=== PATIENT | female | born 1950 | race Caucasian/White ===

== ENCOUNTER 2020-01-16 18:54 | Inpatient (IN) ==
[2020-01-16] MEDS ORDERED: NS 0.9% 1000 ml BAG 1,000 ML IV ONE ×2 (19:04→21:20)
[2020-01-16] MEDS ORDERED: Morphine 4 MG/ML VIAL (1 ml) IV ONE ×2 (19:04→20:55)
[2020-01-16] MEDS ORDERED: Ondansetron 4 mg VIAL 2 MG/ML 2 ml VIAL IV ONE (19:37)
[2020-01-16 19:50] LABS: ABS Lymphocytes 1.2 10^3/ul (1.0-4.8); ABS Monocytes 0.4 10^3/ul (0-0.8); ABS Neutrophils 12.6 10^3/ul (1.5-7.7); Eosinophil % 0.1 %; Hematocrit 40 % (35-47); Hemoglobin 12.8 g/dL (12.0-16.0); Lymphocyte % 8.6 %; Mean Corpuscular HGB Conc 33 g/dL (31-36); Mean Corpuscular Hemoglobin 28 pg (27-31); Mean Corpuscular Volume 86 fL (80-97); Mean Platelet Volume 6.9 fL (7.4-10.4); Platelet Count 530 10^3/uL (150-450); Red Blood Count 4.61 10^6 /uL (3.70-4.87); Red Cell Distribution Width 15 % (10-15); White Blood Count 14.2 10^3/uL (3.5-10.8)
[2020-01-16 20:01] LABS: Albumin 4.4 g/dL (3.2-5.2); Albumin/Globulin Ratio 1.4 (1-3); BUN/Creatinine Ratio 17.1 (8-20); C Reactive Protein 14.62 mg/L (<8.01); Calcium 9.9 mg/dL (8.6-10.3); EGFR African American 55.8 (>60); EGFR Non-African American 46.1 (>60); Globulin 3.2 g/dL (2-4); Potassium 3.5 mmol/L (3.5-5.0); Total Bilirubin 0.5 mg/dL (0.2-1.0); Total Protein 7.6 g/dL (6.4-8.9)
[2020-01-16] MEDS ORDERED: Levofloxacin 750 MG IVPREMIX 750 MG/150 ML BAG IVPB ONE (20:04)
[2020-01-16] MEDS ORDERED: metroNIDAZOLE IV 500 MG/100ML 500 MG/100 ML BAG IVPB ONE (20:04)
[2020-01-16] MEDS ORDERED: Iodixanol (CONTRAST) 320 MG/ML 100 ML SDV IV ONE (20:07)
[2020-01-16] MEDS ORDERED: Bupivacaine 0.25% SDV 30 ML ONE (22:19)
[2020-01-16] MEDS ORDERED: Rocuronium 50 mg VIAL 10 mg/ml 5 ml VIAL (50 mg) ONE (22:30)
[2020-01-16] MEDS ORDERED: Midazolam 2 mg/2 ml VIAL 1 mg/ml 2 ml VIAL (2 mg) ONE (22:30)
[2020-01-16] MEDS ORDERED: fentaNYL 250 mcg/5 ml 50 MCG/ML 5 ml VIAL (250 MCG) ONE (22:30)
[2020-01-16] MEDS ORDERED: Propofol 10 MG/ML 20 ML BTL ONE (22:34)
[2020-01-16] MEDS ORDERED: Phenylephrine IV 10 MG/ML 1 ml VIAL ONE (23:25)
[2020-01-16] MEDS ORDERED: HYDROmorphone 1 MG/1 ML SYRINGE ONE (23:45)
[2020-01-16] MEDS ORDERED: Sodium Citrate/Citric Acid LIQ 15 ML UDC ONE (23:45)
[2020-01-16] MEDS ORDERED: Sugammadex 500 MG/5 ML 5 ml VIAL IV PUSH ONE (23:54)
[2020-01-16] MEDS ORDERED: Ondansetron 4 mg VIAL 2 MG/ML 2 ml VIAL ONE (23:57)
[2020-01-17] MEDS ORDERED: fentaNYL 250 mcg/5 ml 50 MCG/ML 5 ml VIAL (250 MCG) ONE (00:08)
[2020-01-17] MEDS ORDERED: Acetaminophen IV 1 GM/100ML 100 ML ONE (00:25)
[2020-01-17] MEDS ORDERED: Naloxone 0.4 mg VIAL 0.4 mg/ml 1 ml VIAL IV PRN (00:31)
[2020-01-17] MEDS ORDERED: Ondansetron 4 mg VIAL 2 MG/ML 2 ml VIAL IV PRN (00:31)
[2020-01-17] MEDS ORDERED: Rocuronium 50 mg VIAL 10 mg/ml 5 ml VIAL (50 mg) ONE (00:43)
[2020-01-17] MEDS ORDERED: fentaNYL 100 mcg/2 ml 50 MCG/ML VIAL ONE (02:08)
[2020-01-17] MEDS ORDERED: HYDROmorphone 1 MG/1 ML SYRINGE ONE (02:09)
[2020-01-17] MEDS: fentaNYL 100 mcg/2 ml 50 MCG/ML VIAL IV PRN ×3 (02:11→02:32)
[2020-01-17] MEDS: HYDROmorphone 1 MG/1 ML SYRINGE IV PRN ×2 (02:13→02:23)
[2020-01-17] MEDS ORDERED: Levofloxacin 750 MG IVPREMIX 750 MG/150 ML BAG IVPB SCH (03:00)
[2020-01-17] MEDS: Lactated Ringers 1000 ml BAG 1,000 ML IV SCH ×4 (03:25→15:05)
[2020-01-17] MEDS: metroNIDAZOLE IV 500 MG/100ML 500 MG/100 ML BAG IVPB SCH ×3 (03:28→18:40)
[2020-01-17] MEDS: HYDROmorphone 1 MG/1 ML SYRINGE IV SLOW PU PRN ×4 (03:54→11:32)
[2020-01-17 04:49] LABS: Urine Appearance Clear; Urine Bilirubin Negative (Negative); Urine Blood 2+ (Negative); Urine Color Yellow; Urine Glucose Negative (Negative); Urine Ketones Negative (Negative); Urine Nitrite Negative (Negative); Urine Protein 1+(30 mg/dL) (Negative); Urine Urobilinogen Negative (Negative)
[2020-01-17 04:54] LABS: Urine Bacteria 1+ (Absent); Urine Red Blood Cell 3+(>10/hpf) (Absent); Urine Squamous Epithelial Cell Present (Absent); Urine White Blood Cell Trace(0-5/hpf) (Absent)
[2020-01-17 05:35] LABS: Urine Specific Gravity > 1.050 (1.010-1.030)
[2020-01-17 05:39] LABS: ABS Lymphocytes 0.3 10^3/ul (1.0-4.8); ABS Monocytes 0.4 10^3/ul (0-0.8); ABS Neutrophils 16.6 10^3/ul (1.5-7.7); Hematocrit 35 % (35-47); Hemoglobin 11.5 g/dL (12.0-16.0); Mean Corpuscular HGB Conc 32 g/dL (31-36); Mean Corpuscular Hemoglobin 28 pg (27-31); Mean Corpuscular Volume 86 fL (80-97); Mean Platelet Volume 6.6 fL (7.4-10.4); Platelet Count 395 10^3/uL (150-450); Red Blood Count 4.12 10^6 /uL (3.70-4.87); Red Cell Distribution Width 15 % (10-15); White Blood Count 17.4 10^3/uL (3.5-10.8)
[2020-01-17 05:59] LABS: Albumin 3.6 g/dL (3.2-5.2); Albumin/Globulin Ratio 1.4 (1-3); BUN/Creatinine Ratio 16.2 (8-20); Calcium 8.4 mg/dL (8.6-10.3); EGFR African American 59.3 (>60); Globulin 2.5 g/dL (2-4); Potassium 4.4 mmol/L (3.5-5.0); Total Bilirubin 0.7 mg/dL (0.2-1.0); Total Protein 6.1 g/dL (6.4-8.9)
[2020-01-17] MEDS: Ondansetron 4 mg VIAL 2 MG/ML 2 ml VIAL IV PRN ×3 (07:07→20:21)
[2020-01-17] MEDS: Mometasone/Formoter 100/5 MDI INH SCH ×2 (11:12→19:41)
[2020-01-17] MEDS: Famotidine IV 10 MG/ML 2 ml VIAL (20 mg) IV SLOW PU SCH ×2 (11:28→20:15)
[2020-01-17 11:50] LABS: Activated Partial Thrombo Time 28.6 seconds (26.0-38.0); INR 1.16 (0.82-1.09)
[2020-01-17 11:51] LABS: EGFR African American 51.3 (>60); EGFR Non-African American 42.4 (>60)
[2020-01-17] MEDS: Heparin 5000 UNITS/ML 1 mL VIAL SUBCUT SCH ×2 (14:00→22:17)
[2020-01-17] MEDS ORDERED: PHENYLEPHRINE HCL 10 MG PO PRN (16:32)
[2020-01-17] MEDS: Fluticasone NASAL SPRAY 50MCG 16 gm SPRAY BTL BOTH NARES SCH (20:24)
[2020-01-17] MEDS: Ciprofloxacin 400mg IVPREMIX 400 MG/200 ML BAG IVPB SCH (22:05)
[2020-01-18] MEDS: Lactated Ringers 1000 ml BAG 1,000 ML IV SCH ×2 (02:31→15:39)
[2020-01-18] MEDS ORDERED: NS 0.9% 500 ml BAG 500 ML IV ONE (03:43)
[2020-01-18] MEDS: metroNIDAZOLE IV 500 MG/100ML 500 MG/100 ML BAG IVPB SCH ×3 (04:34→18:28)
[2020-01-18] MEDS: Ondansetron 4 mg VIAL 2 MG/ML 2 ml VIAL IV PRN (05:41)
[2020-01-18] MEDS: Heparin 5000 UNITS/ML 1 mL VIAL SUBCUT SCH ×3 (07:03→22:24)
[2020-01-18 07:31] LABS: Hematocrit 30 % (35-47); Hemoglobin 10.1 g/dL (12.0-16.0); Mean Corpuscular HGB Conc 34 g/dL (31-36); Mean Corpuscular Hemoglobin 28 pg (27-31); Mean Corpuscular Volume 85 fL (80-97); Mean Platelet Volume 6.7 fL (7.4-10.4); Platelet Count 361 10^3/uL (150-450); Red Blood Count 3.56 10^6 /uL (3.70-4.87); Red Cell Distribution Width 15 % (10-15)
[2020-01-18 07:46] LABS: BUN/Creatinine Ratio 17.2 (8-20); Calcium 8.7 mg/dL (8.6-10.3); EGFR African American 39.8 (>60); EGFR Non-African American 32.9 (>60); Potassium 3.8 mmol/L (3.5-5.0)
[2020-01-18] MEDS: Ciprofloxacin 400mg IVPREMIX 400 MG/200 ML BAG IVPB SCH ×2 (07:59→20:55)
[2020-01-18] MEDS: Mometasone/Formoter 100/5 MDI INH SCH ×2 (08:51→19:53)
[2020-01-18] MEDS: Fluticasone NASAL SPRAY 50MCG 16 gm SPRAY BTL BOTH NARES SCH ×2 (08:51→21:31)
[2020-01-18] MEDS: Famotidine IV 10 MG/ML 2 ml VIAL (20 mg) IV SLOW PU SCH ×2 (08:54→21:04)
[2020-01-18] MEDS: Prochlorperazine 5 mg/ml 2 ml VIAL (10 mg) IV PRN ×2 (08:55→20:56)
[2020-01-18] MEDS: HYDROmorphone 1 MG/1 ML SYRINGE IV SLOW PU PRN ×2 (09:29→18:32)
[2020-01-18] MEDS ORDERED: NS 0.9% 1000 ml BAG 1,000 ML IV ONE ×2 (10:00→20:13)
[2020-01-19] MEDS: Lactated Ringers 1000 ml BAG 1,000 ML IV SCH ×2 (01:02→15:21)
[2020-01-19] MEDS: metroNIDAZOLE IV 500 MG/100ML 500 MG/100 ML BAG IVPB SCH ×3 (02:39→19:22)
[2020-01-19] MEDS: Ondansetron 4 mg VIAL 2 MG/ML 2 ml VIAL IV PRN (02:53)
[2020-01-19] MEDS: HYDROmorphone 1 MG/1 ML SYRINGE IV SLOW PU PRN ×2 (02:53→09:35)
[2020-01-19] MEDS: Heparin 5000 UNITS/ML 1 mL VIAL SUBCUT SCH ×3 (05:31→22:22)
[2020-01-19 06:08] LABS: ABS Eosinophils 0.3 10^3/ul (0-0.6); ABS Lymphocytes 0.9 10^3/ul (1.0-4.8); ABS Monocytes 0.4 10^3/ul (0-0.8); ABS Neutrophils 11.8 10^3/ul (1.5-7.7); Eosinophil % 2.4 %; Hematocrit 27 % (35-47); Hemoglobin 9.2 g/dL (12.0-16.0); Lymphocyte % 6.9 %; Mean Corpuscular HGB Conc 34 g/dL (31-36); Mean Corpuscular Hemoglobin 29 pg (27-31); Mean Corpuscular Volume 85 fL (80-97); Mean Platelet Volume 6.8 fL (7.4-10.4); Platelet Count 323 10^3/uL (150-450); Red Cell Distribution Width 15 % (10-15); White Blood Count 13.5 10^3/uL (3.5-10.8)
[2020-01-19 06:24] LABS: Albumin 2.9 g/dL (3.2-5.2); BUN/Creatinine Ratio 18.2 (8-20); Calcium 8.4 mg/dL (8.6-10.3); EGFR African American 48.6 (>60); EGFR Non-African American 40.1 (>60); Globulin 2.8 g/dL (2-4); Potassium 3.8 mmol/L (3.5-5.0); Total Bilirubin 0.4 mg/dL (0.2-1.0); Total Protein 5.7 g/dL (6.4-8.9)
[2020-01-19] MEDS: Famotidine IV 10 MG/ML 2 ml VIAL (20 mg) IV SLOW PU SCH ×2 (08:19→22:18)
[2020-01-19] MEDS: Fluticasone NASAL SPRAY 50MCG 16 gm SPRAY BTL BOTH NARES SCH ×2 (08:20→22:24)
[2020-01-19] MEDS: Ciprofloxacin 400mg IVPREMIX 400 MG/200 ML BAG IVPB SCH ×2 (08:20→20:37)
[2020-01-19] MEDS: Mometasone/Formoter 100/5 MDI INH SCH ×2 (08:21→22:27)
[2020-01-19] MEDS: Prochlorperazine 5 mg/ml 2 ml VIAL (10 mg) IV PRN ×2 (08:45→22:25)
[2020-01-20] MEDS: HYDROmorphone 1 MG/1 ML SYRINGE IV SLOW PU PRN (01:40)
[2020-01-20] MEDS: metroNIDAZOLE IV 500 MG/100ML 500 MG/100 ML BAG IVPB SCH ×3 (04:11→19:26)
[2020-01-20] MEDS: Lactated Ringers 1000 ml BAG 1,000 ML IV SCH ×2 (05:45→15:45)
[2020-01-20] MEDS: Heparin 5000 UNITS/ML 1 mL VIAL SUBCUT SCH ×3 (06:04→22:25)
[2020-01-20 06:27] LABS: ABS Eosinophils 0.4 10^3/ul (0-0.6); ABS Lymphocytes 1.2 10^3/ul (1.0-4.8); ABS Monocytes 0.6 10^3/ul (0-0.8); Eosinophil % 4.3 %; Hematocrit 25 % (35-47); Hemoglobin 8.8 g/dL (12.0-16.0); Lymphocyte % 12.7 %; Mean Corpuscular HGB Conc 35 g/dL (31-36); Mean Corpuscular Hemoglobin 29 pg (27-31); Mean Corpuscular Volume 85 fL (80-97); Mean Platelet Volume 6.6 fL (7.4-10.4); Platelet Count 331 10^3/uL (150-450); Red Blood Count 3.01 10^6 /uL (3.70-4.87); Red Cell Distribution Width 16 % (10-15); White Blood Count 9.1 10^3/uL (3.5-10.8)
[2020-01-20 06:43] LABS: BUN/Creatinine Ratio 13.2 (8-20); Calcium 8.5 mg/dL (8.6-10.3); EGFR African American 57.5 (>60); EGFR Non-African American 47.5 (>60); Potassium 3.6 mmol/L (3.5-5.0)
[2020-01-20] MEDS: Famotidine IV 10 MG/ML 2 ml VIAL (20 mg) IV SLOW PU SCH ×2 (08:10→22:24)
[2020-01-20] MEDS: Ciprofloxacin 400mg IVPREMIX 400 MG/200 ML BAG IVPB SCH ×2 (08:11→20:25)
[2020-01-20] MEDS: Mometasone/Formoter 100/5 MDI INH SCH ×2 (09:38→22:23)
[2020-01-20] MEDS: Fluticasone NASAL SPRAY 50MCG 16 gm SPRAY BTL BOTH NARES SCH ×2 (09:38→22:22)
[2020-01-20] MEDS: Prochlorperazine 5 mg/ml 2 ml VIAL (10 mg) IV PRN (22:24)
[2020-01-21] MEDS: HYDROmorphone 1 MG/1 ML SYRINGE IV SLOW PU PRN (01:38)
[2020-01-21] MEDS: Lactated Ringers 1000 ml BAG 1,000 ML IV SCH (01:38)
[2020-01-21] MEDS: metroNIDAZOLE IV 500 MG/100ML 500 MG/100 ML BAG IVPB SCH ×3 (03:26→19:28)
[2020-01-21] MEDS: Heparin 5000 UNITS/ML 1 mL VIAL SUBCUT SCH ×3 (06:26→21:29)
[2020-01-21] MEDS: Mometasone/Formoter 100/5 MDI INH SCH ×2 (07:20→19:56)
[2020-01-21] MEDS: Ciprofloxacin 400mg IVPREMIX 400 MG/200 ML BAG IVPB SCH ×2 (07:59→21:14)
[2020-01-21] MEDS: Famotidine IV 10 MG/ML 2 ml VIAL (20 mg) IV SLOW PU SCH ×2 (08:10→20:45)
[2020-01-21] MEDS: Albuterol HFA INHALER 8 gm MDI INH PRN (08:10)
[2020-01-21] MEDS: Fluticasone NASAL SPRAY 50MCG 16 gm SPRAY BTL BOTH NARES SCH ×2 (08:10→20:46)
[2020-01-21] MEDS ORDERED: oxyCODONE/Acetamin 5/325 mg TAB PO PRN ×2 (10:34→10:35)
[2020-01-21] MEDS: Prochlorperazine 5 mg/ml 2 ml VIAL (10 mg) IV PRN (19:28)
[2020-01-22] MEDS: Prochlorperazine 5 mg/ml 2 ml VIAL (10 mg) IV PRN (03:11)
[2020-01-22] MEDS: metroNIDAZOLE IV 500 MG/100ML 500 MG/100 ML BAG IVPB SCH ×2 (03:11→11:22)
[2020-01-22] MEDS: Heparin 5000 UNITS/ML 1 mL VIAL SUBCUT SCH ×3 (05:30→23:12)
[2020-01-22] MEDS: Ciprofloxacin 400mg IVPREMIX 400 MG/200 ML BAG IVPB SCH (08:31)
[2020-01-22] MEDS: Famotidine IV 10 MG/ML 2 ml VIAL (20 mg) IV SLOW PU SCH ×2 (08:31→20:35)
[2020-01-22] MEDS: Mometasone/Formoter 100/5 MDI INH SCH ×2 (08:32→19:30)
[2020-01-22] MEDS: Fluticasone NASAL SPRAY 50MCG 16 gm SPRAY BTL BOTH NARES SCH ×2 (08:36→22:51)
[2020-01-22] MEDS: Saline NASAL SPRAY 0.65% BTL BOTH NARES PRN ×2 (13:39→20:35)
[2020-01-22] MEDS: Ondansetron 4 mg VIAL 2 MG/ML 2 ml VIAL IV PRN ×2 (16:58→23:12)
[2020-01-22] MEDS ORDERED: ZOSYN 3.375 GM x ONE DOSE over 30 miuntes IV (20:00)
[2020-01-22] MEDS: HYDROmorphone 1 MG/1 ML SYRINGE IV SLOW PU PRN (23:13)
[2020-01-22] MEDS: Piperacillin/Tazobac ADVAN 3.375 GM in NS 0.9% 100 ml BAG 100 ML IV SCH (23:23)
[2020-01-23] MEDS: Ondansetron 4 mg VIAL 2 MG/ML 2 ml VIAL IV PRN ×2 (05:08→17:12)
[2020-01-23 05:25] LABS: Hematocrit 28 % (35-47); Hemoglobin 9.2 g/dL (12.0-16.0)
[2020-01-23] MEDS: Heparin 5000 UNITS/ML 1 mL VIAL SUBCUT SCH ×3 (06:09→21:41)
[2020-01-23] MEDS: Mometasone/Formoter 100/5 MDI INH SCH ×2 (07:58→19:56)
[2020-01-23] MEDS: Albuterol HFA INHALER 8 gm MDI INH PRN ×2 (07:59→19:56)
[2020-01-23] MEDS: Piperacillin/Tazobac ADVAN 3.375 GM in NS 0.9% 100 ml BAG 100 ML IV SCH ×2 (08:33→16:11)
[2020-01-23] MEDS: Fluticasone NASAL SPRAY 50MCG 16 gm SPRAY BTL BOTH NARES SCH ×2 (09:08→21:38)
[2020-01-23] MEDS: Famotidine IV 10 MG/ML 2 ml VIAL (20 mg) IV SLOW PU SCH ×2 (09:08→21:39)
[2020-01-23] MEDS: Saline NASAL SPRAY 0.65% BTL BOTH NARES PRN ×2 (09:22→21:37)
[2020-01-23] MEDS: HYDROmorphone 1 MG/1 ML SYRINGE IV SLOW PU PRN (21:44)
[2020-01-24] MEDS: Piperacillin/Tazobac ADVAN 3.375 GM in NS 0.9% 100 ml BAG 100 ML IV SCH ×2 (00:32→08:26)
[2020-01-24] MEDS: Heparin 5000 UNITS/ML 1 mL VIAL SUBCUT SCH (05:08)
[2020-01-24 05:10] LABS: Hematocrit 26 % (35-47); Hemoglobin 8.9 g/dL (12.0-16.0); Mean Corpuscular HGB Conc 34 g/dL (31-36); Mean Corpuscular Hemoglobin 29 pg (27-31); Mean Corpuscular Volume 84 fL (80-97); Platelet Count 419 10^3/uL (150-450); Red Cell Distribution Width 16 % (10-15); White Blood Count 10.9 10^3/uL (3.5-10.8)
[2020-01-24 08:06] VITALS: BP 129/57
[2020-01-24] MEDS: Famotidine IV 10 MG/ML 2 ml VIAL (20 mg) IV SLOW PU SCH (09:28)
[2020-01-24] MEDS: Fluticasone NASAL SPRAY 50MCG 16 gm SPRAY BTL BOTH NARES SCH (09:34)
[2020-01-24] MEDS: Mometasone/Formoter 100/5 MDI INH SCH (09:35)
[2020-01-24 10:30] LABS: ABS Basophils 0.1 10^3/ul (0-0.2); ABS Eosinophils 0.4 10^3/ul (0-0.6); ABS Lymphocytes 1.7 10^3/ul (1.0-4.8); ABS Monocytes 0.9 10^3/ul (0-0.8); ABS Neutrophils 7.8 10^3/ul (1.5-7.7); Eosinophil % 3.7 %; Lymphocyte % 15.7 %
== END 2020-01-24 11:03 | disposition home health service (06) | DRG 330 ==
LOC: ED 18:54 → ICU 01-17 02:45 → SSU 01-17 15:49
PROVIDERS: ADMIT Surgery; ATTEND Surgery